=== PATIENT | male | born 1985 | race African-American/Black ===

== ENCOUNTER 2020-08-28 11:14 | Emergency (ER) | payer OTHER ==
[2020-08-28] MEDS ORDERED: Doxycycline 100 MG CAP PO SCH (12:00)
[2020-08-28] MEDS ORDERED: Ketorolac Tromethamine 30 MG/ML VIAL ONE (12:07)
== END 2020-08-28 12:55 | disposition home or self-care (01) ==
LOC: ERS 11:14
DX: L02.415 Cutaneous abscess of right lower limb (principal)
CPT/HCPCS: 96372; 99283; J1885